=== PATIENT | female | born 1995 | race Caucasian/White ===

== ENCOUNTER 2025-01-16 11:08 | Emergency (ER) | payer OTHER, SELFPAY ==
[2025-01-16 11:17] VITALS: BP 132/78; PULSE 71; RESP 18; TEMP 36.8; O2SAT 100
--- NOTE | 2025-01-16 11:21 | ED_ITS ---
HPI - Female Genitourinary General Chief complaint: Urogenital-Female Stated complaint: std testing Source: patient and RN notes reviewed Mode of arrival: ambulatory Limitations: no limitations History of Present Illness HPI Narrative: 29 y/o female presented for STD testing, stating partner tested positive for chlamydia this week. Pt denies any symptoms, and states partner was asymptomatic as well. Denies concern for or UTI. Related Data Home Medications ?Medication ?Instructions ?Recorded ?Confirmed ?Last Taken ?Type levonorgestrel-ethinyl estradiol tablet 01/16/25 Unkn own History 0.1 mg-20 mcg tablet (Vienva) Allergies Allergy/AdvReac Type Severity Reaction Status Date / Time No Known Allergies Allergy Verified 01/16/25 11:21 Review of Systems Review of Systems: CONSTITUTIONAL: Denies body aches, fever, chills, or sweats. CARDIOVASCULAR: Denies chest pain, palpitations, or edema. RESPIRATORY: Denies cough or dyspnea. GASTROINTESTINAL: Denies abdominal pain, nausea, vomiting, or diarrhea. GENITOURINARY: denies dysuria, frequency, urgency, hematuria, flank pain, discharge SKIN: Denies rash, itching, or wounds. MUSCULOSKELETAL: Denies back pain or myalgia. PMFSH Comments At time of signature, I have reviewed and agree with nursing past medical, surgical, social and family history unless otherwise noted. Please see nursing chart for further information. There is no relevant family history pertinent to the presenting complaint Exam Narrative: GENERAL: Well-appearing and in no acute distress. ENT: Mucous membranes pink and moist. NECK: Normal AROM. Supple. CHEST: No respiratory distress. Clear to auscultation. HEART: Regular rate and rhythm. ABDOMEN: Soft, nontender, nondistended, normal active bowel sounds. No CVA tenderness SKIN: Warm, dry, no rash. NEURO: No focal deficits. Alert and oriented x3. Gait steady. PSYCH: Normal affect. Course Course Emergency Course: Patient is aware of diagnosis, understands and agrees to treatment plan. Anticipatory guidance given. Patient agrees to follow-up as directed and is aware of reasons to seek care at the emergency department. Portions of this record may have been created with voice recognition software Level of Care: Express Care Visit Vital Signs Vital signs: Reviewed MDM - Female Genitourinary MDM Narrative Medical decision making narrative: Patient presenting with concern for STD. Urine specimen collected for GC, chlamydia, trich. Informed Pt will be contacted w/ results when they become available if they are positive. Discussed with patient that it takes up to 7 days for results of cultures to be released and explained that we may treat empirically at this time. Agreeable to treatment for chlamydia at this time. Rx doxycycline sent. She is aware she would need to RTC if gonorrhea is positive. I have instructed the patient to return to the ER at any time if there are any new or worsening symptoms. The patient expressed understanding of and agreement with this plan. Differential Diagnosis Differential diagnosis: Likely urinary tract infection, bacterial vaginosis, trichomoniasis, vaginitis and other (STD) Discharge Plan Discharge Clinical Impression: Concern about STD in female without diagnosis Patient Disposition: Home Condition: Stable Instructions: Antibiotic Form, Chlamydia (ED), Safe Sex Practices (ED) Additional Instructions: Your urine sample today was negative for a urinary tract infection. It has been sent off to test for gonorrhea, chlamydia, and trichomonas infections. You will be called if any of your tests come back positive. These tests can take up to 5- 7 days to come back. You have been given Prescription for Doxycycline to cover for chlamydia. If your tests come back positive for gonorrhea and/or trichomonas you will need additional treatment. You will need to notify any partners that you have so they can be tested and treated. To avoid reinfection, you are advised to abstain from sexual intercourse for 7 days (and any symptoms have resolved) to prevent transmission. Recommend safe sex practices to avoid infection. If your tests come back negative and you are still experiencing symptoms, please follow-up with your PCP or Obgyn for further evaluation and treatment. If your symptoms worsen to include fever, abdominal pain, or back pain, etc please go to the hospital immediately. Patient Language: [place] Prescriptions: New doxycycline hyclate 100 mg tablet 100 mg PO BID 7 Days Qty: 14 0RF No Action levonorgestrel-ethinyl estrad [Vienva] 0.1-20 mg-mcg tablet Follow-up/Referrals: PHYSICIAN,UNDERGRADUATE INTERN [Primary Care Provider, Internal Medicine] Time of Disposition: 11:32
[2025-01-16 20:27] LABS: Trichomonas Vag PCR NOT DETECTED (NOT DETECTE)
== END 2025-01-16 11:41 | disposition home or self-care (01) ==
PROVIDERS: Emergency Provider Nurse Practitioner Family
DX: Z20.2 Contact with and (suspected) exposure to infections with a predominantly sexual mode of transmission (principal)
CPT/HCPCS: 87491; 87591; 87661; 99203; G0463